=== PATIENT | female | born 1960 | race American Indian/Alaskan Native ===

== ENCOUNTER 2020-10-30 20:14 | Emergency (ER) | payer OTHER ==
--- NOTE | 2020-10-30 22:24 | Cat Scan Report ---
CT maxillofacial without contrast INDICATION : MAIN. Nasal injury, patient fell onto concrete TECHNIQUE: Axial imaging performed through the face with reconstructed images also reviewed. All CT scans at this location are performed using CT dose reduction for ALARA by means of automated exposur e control. COMPARISON: CT head from 11/27/2015 FINDINGS: No acute fracture identified. There is mild soft tissue swelling over the bridge of the no se. No soft tissue wound identified. The orbits are normal. Sinuses and mastoid air cells are clear. Limited visualization of intracranial structures shows no ac barrow abnormality. IMPRESSION: Mild facial soft tissue swelling. No acute fracture. Signer Name: Bishnu Melo MD Signed: 10/30/2020 10:20 PM Workstation Name: [id number]
--- NOTE | 2020-10-30 23:36 | Emergency Department Report ---
ED General Adult HPI - General Chief complaint: Nosebleed Stated complaint: NASAL INJURY Time Seen by Provider: 10/30/20 23:09 Source: patient Mode of arrival: Ambulatory Limitations: No Limitations - History of Present Illness Initial comments: 59-year-old -[place] female patient with history of hypertension presents with complaints of nasal injury, pain, and swelling after a fall injury today. Patient states she was chasing her grandchildren when she tripped and fell onto her face sliding it on the concrete. Patient rates her current pain as a 7/10 in severity and states it worsens with touch. She states initially her nose did bleed some, however that resolved after a few minutes. No bruising to the eyes, loss of consciousness, nausea/vomiting, confusion, memory loss, numbness/tingling/weakness in her limbs, or difficulty with speech/ambulation per patient. She denies any headache at current. No difficulty breathing through the nose per patient. - Related Data Home Medications Medication Instructions Recorded Confirmed Last Taken No Known Home Medications [No 11/27/15 11/27/15 Unknown Reported Home Medications] Allergies Allergy/AdvReac Type Severity Reaction Status Date / Time Penicillins Allergy Rash Verified 11/27/15 16:04 ED Review of Systems ROS: Stated complaint: NASAL INJURY Other details as noted in HPI Constitutional: denies: chills, fever, malaise Eyes: denies: eye pain, vision change Respiratory: denies: shortness of breath Neurological: denies: headache, numbness, paresthesias ED Past Medical Hx - Past Medical History Previous Medical History?: Yes - Surgical History Past Surgical History?: Yes Additional Surgical History: hysterectomy - Social History Smoking Status: Never Smoker Substance Use Type: None - Medications Home Medications: Home Medications Medication Instructions Recorded Confirmed Last Taken Type No Known Home Medications [No 11/27/15 11/27/15 Unknown History Reported Home Medications] ED Physical Exam - General Limitations: No Limitations General appearance: alert, in no apparent distress - Head Head exam: Present: normocephalic - Expanded Head Exam Expanded Head exam: Present: abrasion (Noted at top of nose without active bleeding; mild swelling of the nose noted; there is moderate tenderness to palpation). Absent: hematoma, racoon eyes, salazar's sign, general tenderness - Eye Eye exam: Present: normal appearance, PERRL. Absent: scleral icterus - ENT ENT exam: Present: other (Dried blood noted to the left nostril; nasal passages are patent) - Neck Neck exam: Present: normal inspection, full ROM. Absent: tenderness - Respiratory Respiratory exam: Absent: respiratory distress - Cardiovascular Cardiovascular Exam: Present: regular rate - Neurological Exam Neurological exam: Present: alert, oriented X3 - Psychiatric Psychiatric exam: Present: normal affect, normal mood - Skin Skin exam: Present: warm, dry, normal color. Absent: rash ED Course Vital Signs 10/30/20 10/31/20 20:42 00:30 Temperature 98.0 F Pulse Rate 98 H 77 Respiratory 18 16 Rate Blood Pressure 189/94 Blood Pressure 156/96 [Right] O2 Sat by Pulse 95 99 Oximetry ED Medical Decision Making - Radiology Data Radiology results: report reviewed CT maxillofacial without contrast INDICATION : MAIN. Nasal injury, patient fell onto concrete TECHNIQUE: Axial imaging performed through the face with reconstructed images also reviewed. All CT scans at this location are performed using CT dose reduction for ALARA by means of automated exposure control. COMPARISON: CT head from 11/27/2015 FINDINGS: No acute fracture identified. There is mild soft tissue swelling over the bridge of the nose. No soft tissue wound identified. The orbits are normal. Sinuses and mastoid air cells are clear. Limited visualization of intracranial structures shows no acute abnormality. IMPRESSION: Mild facial soft tissue swelling. No acute fracture. - Medical Decision Making 59-year-old -[place] female patient with history of hypertension presents with complaints of nasal injury, pain, and swelling after a fall injury today. Patient states she was chasing her grandchildren when she tripped and fell onto her face sliding it on the concrete. Patient rates her current pain as a 7/10 in severity and states it worsens with touch. She states initially her nose did bleed some, however that resolved after a few minutes. No bruising to the eyes, loss of consciousness, nausea/vomiting, confusion, memory loss, numbness/tingling/weakness in her limbs, or difficulty with speech/ambulation per patient. She denies any headache at current. No difficulty breathing through the nose per patient. Patient denies being on anticoagulant therapy CT of the face is negative for any nasal fracture or other cranial abnormality. Will treat conservatively with icing and Neosporin. Patient states her last tetanus vaccine was 2 months ago. Discussed signs and symptoms that should prompt immediate return to the emergency department in detail with patient who verbalized understanding. She is well-appearing and stable for discharge home. Patient to follow-up with her primary care provider in 3 to 5 days Critical care attestation.: If time is entered above; I have spent that time in minutes in the direct care of this critically ill patient, excluding procedure time. ED Disposition Clinical Impression: Contusion, nose Disposition: DC-01 TO HOME OR SELFCARE Is pt being admited?: No Condition: Stable Instructions: Contusion Referrals: PRIMARY CARE, [Primary Care Provider] - 3-5 Days
[2020-10-30] MEDS ORDERED: ACETAMINOPHEN 500 MG TAB PO STA (23:50)
[2020-10-30] MEDS ORDERED: IBUPROFEN 800 MG TAB PO STA (23:50)
[2020-10-31 02:01] VITALS: BP 156/96
== END 2020-10-31 00:30 | disposition home or self-care (01) ==
LOC: ED 20:14
DX: S00.33XA Contusion of nose, initial encounter (principal); Z90.710 Acquired absence of both cervix and uterus; Z88.0 Allergy status to penicillin; W01.0XXA Fall on same level from slipping, tripping and stumbling without subsequent striking against object, initial encounter; Y93.89 Activity, other specified; Y92.89 Other specified places as the place of occurrence of the external cause; Y99.8 Other external cause status
CPT/HCPCS: 70486